=== PATIENT | female | born 1975 | race Caucasian/White ===

== ENCOUNTER → 2019-02-08 05:53 | Day surgery (SDC) | payer MEDICAID, OTHER ==
[~2019-02-08 05:53] MED LIST: Acetaminophen TAB* 325 MG ONE; Acetaminophen TAB* 325 MG PO PRN; Buffered Lidocaine 1% SYRIN* 1 ML/SYRINGE INTRADERM ONE; Bupivacaine 0.25% SDV PF* 10 ML VIAL INJ ONE; Dexamethasone IV* 4 MG/ML 1 ML (4 MG) ONE; EPHEDrine (Pressors)* 50 MG/ML VIAL ONE; Ketorolac INJ* 30 MG/ML 1 ML VIAL ONE; Lactated Ringers 1000 ML Bag* 1,000 ML IV SCH; Lidocaine 2% PF * 5 ML VIAL ONE; Metoclopramide IV* 5 MG/ML 2 ML VIAL ONE; Midazolam* 1 MG/ML 2 ML VIAL (2 MG) ONE; Naloxone* 0.4 MG/ML 1 ML VIAL IV PRN; Ondansetron INJ* 2 MG/ML VIAL ONE; Propofol* 10 MG/ML 20 ML BTL ONE; ceFAZolin 2 GM in NS PREMIX(*) 2 GM/100 ML BAG IVPB ONE; fentaNYL* 50 MCG/ML 2 ML VIAL (100 MCG VIAL) IV PRN; fentaNYL* 50 MCG/ML 2 ML VIAL (100 MCG VIAL) ONE; oxyCODONE TAB* 5 MG TAB PO PRN
[2019-02-08 10:56] VITALS: BP 140/80
--- NOTE | 2019-02-08 12:41 | OP ---
DATE OF OPERATION: 02/08/19 - [facility] DATE OF : 73 SURGEON: Virgil Novoa MD LASTING FLOORWORKER: JODI Santiago. An assistant warehouse manager was needed for the procedure to aid in positioning of the arm and retraction. ANESTHESIOLOGIST: Dr. Hazel. ANESTHESIA: General. PRE-OP DIAGNOSES: 1. Right carpal tunnel syndrome. 2. Right cubital tunnel syndrome. POST-OP DIAGNOSES: 1. Right carpal tunnel syndrome. 2. Right cubital tunnel syndrome. OPERATIVE PROCEDURE: 1. Right in-situ cubital tunnel release. 2. Right endoscopic carpal tunnel release. INDICATIONS: Vicki has the aforementioned nerve compressions. We talked about risks and benefits and she wanted to proceed. ESTIMATED BLOOD LOSS: 2 mL. COMPLICATIONS: None. FINDINGS: See above and below. DESCRIPTION OF PROCEDURE: Vicki was seen in the preoperative holding area. The correct site, side, and procedure were identified. We came back to the operating room. The arm was prepped and draped in the usual fashion. A time- out was performed. The arm was exsanguinated with the Esmarch and the tourniquet was inflated to 225 mmHg. I put a couple of towels underneath the wrist and then I made a 1 cm transverse incision just ulnar to the palmaris longus and proximal to the wrist flexion crease. The distal antebrachial fascia was transversely spread and opened bluntly with the tenotomy scissors. A 2-prong skin hook was placed. The synovial stripper followed by the dilators were used to open up the carpal tunnel and then Q- tip was placed to dry out the carpal tunnel. I then used a [employer] endoscopic carpal tunnel system to visualize the undersurface of the transverse carpal ligament that was released in its entirety as I pulled back from distal to proximal. Once I had confirmed the release distally, I released the proximal aspect of the ligament. I then placed a Surya retractor and put the camera back into the carpal tunnel. I confirmed the release, everything was looking good. I released the distal antebrachial fascia proximally with a tenotomy scissors. Wound was irrigated out and closed with 4-0 Prolene suture run in subcuticular fashion. A 0.25% Marcaine was infiltrated about the operative area. I then made a curvilinear incision centered over the cubital tunnel of about 4 cm. Dissection was carried down, the nerve was unroofed starting just proximal to the Bullock's ligament. The release was carried out proximally past the arcade of [place], distally I came back down and excised a very bulky anconeus epitrochlearis muscle and released the remainder of the Bullock's ligament. The superficial FCU fascia was released, two of the FCU were split and then the subfacial area was released. The medial antebrachial cutaneous nerve was preserved throughout the surgery. The wound was irrigated out. I did let down the Bovie to ensure for good hemostasis as there was a couple of traversing veins I had cauterized with the bipolar. Everything was looking good. Again, I checked for any remaining bleeders and cauterized them with the Bovie. Subcutaneous tissue was reapproximated with 3-0 Vicryl. Skin was closed with 3-0 Monocryl and Steri- Strips, 0.25% plain Marcaine was infiltrated. Well-padded soft dressings were applied with some gentle compression over the wound. She was taken to the recovery room in stable condition. [id number]/[facility] #: [id number] DINH
== END | disposition home or self-care (01) ==
LOC: OR 05:53
PROVIDERS: ATTEND Orthopaedic Surgery Hand Surgery
DX: G56.01 Carpal tunnel syndrome, right upper limb (principal); G56.21 Lesion of ulnar nerve, right upper limb; E11.9 Type 2 diabetes mellitus without complications; Z79.84 Long term (current) use of oral hypoglycemic drugs; Z85.3 Personal history of malignant neoplasm of breast; I10 Essential (primary) hypertension; F41.8 Other specified anxiety disorders; Z87.891 Personal history of nicotine dependence
CPT/HCPCS: A9270-GY; J0690; J1100; J1885; J2250; J2405; J2704; J2765; J3010; J3490